=== PATIENT | male | born 1980 | race African-American/Black ===

== ENCOUNTER 2025-10-14 18:03 | Emergency (ER) | payer BC, SELFPAY ==
[2025-10-14 18:05] VITALS: BP 104/75
[2025-10-14 18:58] VITALS: BMI 24.8
[2025-10-14 19:15] LABS: Hematocrit 39.6 % (39.0-52.0); Hemoglobin 13.4 g/dL (13.0-18.0); Mean Corp Hgb Conc. 33.8 g/dL (33.0-37.0); Mean Corpuscular Volume 91.7 fL (80.0-94.0); Nucleated Red Blood Cells % 0 % (-); Platelet Count 201 10^3/uL (130-400); Red Cell Dist. Width 11.6 % (11.5-14.5)
[2025-10-14 19:27] VITALS: BP 109/66
[2025-10-14 19:31] LABS: Blood Urea Nitrogen 16 mg/dl (9-20); Calcium 9.5 mg/dl (8.4-10.2); Carbon Dioxide 26 mmol/L (22-30); Chloride 104 mmol/L (98-107); Estimated Creatinine Clearance 105 ml/min; Glucose 123 mg/dl (70-99); Potassium 4.1 mmol/L (3.5-5.1); Sodium 136 mmol/L (135-145); eGFR > 60.00
[2025-10-14 20:00] VITALS: BP 102/63
--- NOTE | 2025-10-14 20:01 | ED.GENMED ---
History of Present Illness
General
Chief Complaint: Change in Mental Status
Time Seen by Provider: 10/14/25 18:37
History of Present Illness
History of Present Illness:
Ramesh is a 45-year-old male with no past medical history who presents with his family after he was witnessed 'nodding off' and spilling a bowl of cereal just prior arrival. He reports that he has vomited 2 hours ago after was eating when he had
this change in mental status witnessed by his brother. No postictal state described. States that his eyes closed head nodded forward and he immediately woke up. Denies any nausea vomiting headache or any other systemic symptoms. States this has
been in the past but has never sought evaluation as always surrounded by marijuana use. He does use marijuana daily
Past History
Past History
ED Past Medical History: None
ED Past Surgical History: None
Social History
Tobacco: Non-smoker
Personal: Single
Living: with family
Employment: Employed
Phy Exam
General Physical Exam
General Presentation: well appearing and no apparent distress
General Skin: warm and dry
General Habitus: normal
General Mental: alert
General Hydration: appears well hydrated
ENT Exam
ENT Exam: EOMI, pharynx normal, neck supple and normocephalic
Eye Exam
Eye Exam: PERRL, cornea clear and conjunctiva normal
Cardiovascular Exam
Cardiovascular Exam: regular rate/rhythm, no edema, no murmur and normal peripheral pulses
Pulmonary Exam
Pulmonary Exam: lungs clear, no respiratory distress, no rales, no crackles, no rhonchi, no stridor, no wheezing and no cough
Gastrointestinal Exam
Gastrointestinal Exam: normal bowel sounds, non tender, soft, no organomegaly, no pulsatile mass and non distended
Neurological Exam
Neurological Exam: alert, oriented x3, no motor deficits and speech normal
Musculoskeletal Exam
Musculoskeletal Exam: full ROM and no edema
Skin Exam
Skin Exam: normal color, warm/dry, no rash and no petechia
Psychiatric Exam
Psychiatric Exam: normal mood/affect
Course
Orders/Labs/Results
Orders:
Orders
10/14/25 18:46
Electrocardiogram (*1) Urgent
Reason for Study: Fatigue / Weakness
EKG- Treatment ONCE
10/14/25 19:07
Basic Metabolic Panel Urgent
Complete Blood Count/With Diff Urgent
Abnormal Lab Results
10/14/25
19:07
RBC 4.32 L 10^6/uL
(4.70-6.10)
Absolute Monos (auto) 0.7 H 10^3/uL
(0.1-0.6)
Lymphocytes % 16.4 L %
(20.5-51.1)
Glucose 123 H mg/dl
(70-99)
10/14/25 19:07
10/14/25 19:07
Vital Signs
Initial and Last Documented VS:
Initial Vital Signs
Temp Pulse Resp BP Pulse Ox
36.8 C 76 16 104/75 98
10/14/25 18:05 10/14/25 18:05 10/14/25 18:05 10/14/25 18:05 10/14/25 18:05
Last Documented Vital Signs
Temp Pulse Resp BP Pulse Ox
36.8 C 58 18 109/66 95
10/14/25 18:05 10/14/25 20:02 10/14/25 19:51 10/14/25 19:27 10/14/25 20:01
MDM/Problems Addressed
Differential Diagnosis Includes:
History consistent with syncope versus marijuana intoxication. EKG obtained and shows sinus bradycardia with no other abnormalities. Patient is exercise regularly so sinus bradycardia is a baseline for him. CBC and BMP all unremarkable. Patient
offers no complaints while in the emergency department and no recurrent episodes were noted. Encouraged to follow-up with his primary care doctor for reevaluation and consideration of Holter monitor should the symptoms recur. Doubt this is cardiac
syncope however as it seems more consistent with his marijuana use. Return precautions discussed.
*Pulse Oximetry
SaO2: 95
Oxygen Mode of Delivery: Room air
Patient hypoxic: no
*Critical Care Note
Total Time (30-74mins, 75-104mins- exclusive of procedures): Not Applicable
ED Attending Note
-
Portions of this chart may have been created with voice recognition software.� Occasional wrong word or��sound alike� substitutions may have occurred due to the inherent limitations of voice recognition software.
Discharge Plan
Departure
Patient Disposition: Home (Routine Discharge)
Date of Disposition: 10/14/25
Time of Disposition: 20:03
Patient with high blood pressure during this ER visit?: No
Discharge Problem:
Syncope, Intoxication with marijuana
Instructions: Fainting in adults - ED (DC)
Prescriptions:
No Action
No Current Medications
0
Referrals:
NONE,* [Family Provider, Internal Medicine]
Activity Restrictions/Additional Instructions:
Follow-up with your primary care physician regarding this ER visit. Normal blood work and EKG were unremarkable. Is important to stay well-hydrated. Do not drive after utilizing marijuana.
Interventions
Interventions:
*General Assessment Last Done: 10/14/25 18:05
*Neglect/Abuse Screening Last Done: 10/14/25 18:05
*ED COVID-19 Vaccine History Last Done: 10/14/25 18:05
*ED Influenza Vaccine History Last Done: 10/14/25 18:05
[facility] Risk Assessment Tool Last Done: 10/14/25 19:28
*Risk Screen - Suicide (C-SSRS) Last Done: 10/14/25 18:05
ED- Pulmonary Assessment Last Done: 10/14/25 19:31
ED- Neurological Assessment Last Done: 10/14/25 19:29
ED- Cardiac Assessment Last Done: 10/14/25 19:29
ED Swallowing Screen Last Done: 10/14/25 19:29
Discharge Date and Time
Print Language: OCCITAN
== END 2025-10-14 20:15 | disposition home or self-care (01) ==
LOC: EMR 18:03
PROVIDERS: Surgery Trauma Surgery; EMERGENCY PHYSICIAN Student in an Organized Health Care Education/Training Program
DX: R55 Syncope and collapse (principal); F12.920 Cannabis use, unspecified with intoxication, uncomplicated
CPT/HCPCS: 99284; 80048; 85025; 93005